=== PATIENT | female | born 1995 | race Caucasian/White ===

== ENCOUNTER 2017-10-15 09:17 | Emergency (ER) | payer OTHER ==
[2017-10-15] MEDS: ONDANSETRON 4 MG ORAL DISINTEGRATING TAB (S0181) PO ×2 (09:40)
== END 2017-10-15 10:32 | disposition home or self-care (01) ==
LOC: M ED 09:17
DX: F07.81 Postconcussional syndrome (principal); V49.49XA Driver injured in collision with other motor vehicles in traffic accident, initial encounter; Y92.410 Unspecified street and highway as the place of occurrence of the external cause; Y93.89 Activity, other specified; Y99.8 Other external cause status; F17.210 Nicotine dependence, cigarettes, uncomplicated; Z91.018 Allergy to other foods
CPT/HCPCS: 70450

== ENCOUNTER 2017-10-15 21:21 | Emergency (ER) | payer OTHER ==
[2017-10-15] MEDS: NORCO, ANEXSIA 5/325MG TABLET (HYDROcodone/ACETAMINOPHEN) PO ×3 (21:56)
== END 2017-10-15 23:29 | disposition home or self-care (01) ==
LOC: M ED 21:21
DX: G44.309 Post-traumatic headache, unspecified, not intractable (principal); Z91.018 Allergy to other foods
CPT/HCPCS: 70450

== ENCOUNTER → 2017-12-07 | Outpatient (REF) | payer OTHER | LOC: M SFHCLERA 17:18 | DX: J02.9 Acute pharyngitis, unspecified (principal) ==

== ENCOUNTER → 2018-05-23 | Outpatient (CLI) | payer OTHER | LOC: M RAD 14:44 | DX: Z32.01 Encounter for pregnancy test, result positive (principal); Z3A.01 Less than 8 weeks gestation of pregnancy | CPT/HCPCS: 76801 ==

== ENCOUNTER 2018-07-26 10:06 | Emergency (ER) | payer OTHER ==
[2018-07-26 10:30] LABS: CONTROL LINE UCG INT CTR LINE PRESENT; URINE PREG TEST NEGATIVE (NEGATIVE)
[2018-07-26 10:41] LABS: KETONE, URINE AUTO RFX NEGATIVE (NEGATIVE); MUCUS, URINE RFX SMALL (NEGATIVE); RBC, URINE AUTO RFX 0 /HPF (0-3); SPECIFIC GRAVITY UR AUTO RFX 1.016 (1.002-1.035); SQUAM EPITHELIAL CELL UR AURFX 3 /HPF (0-6)
[2018-07-26 10:43] LABS: LEUKOCYTE ESTERASE UR AUTO RFX 3+ (NEGATIVE); NITRITE, URINE AUTO RFX POSITIVE (NEGATIVE); WBC, URINE AUTO RFX TNTC /HPF (0-3)
[2018-07-26] MEDS: PHENAZOPYRIDINE 100 MG TAB PO (10:53)
== END 2018-07-26 11:14 | disposition home or self-care (01) ==
LOC: M ED 10:06
DX: N39.0 Urinary tract infection, site not specified (principal); Z97.5 Presence of (intrauterine) contraceptive device; Z91.018 Allergy to other foods
CPT/HCPCS: 74018

== ENCOUNTER 2019-07-27 20:21 | Emergency (ER) | payer OTHER ==
[~2019-07-27] VITALS: Ht 165.1 cm; Wt 72.7 kg
[~2019-07-27 20:21] MED LIST: MACR100C43 PO; PYRI1TAB5 PO
--- NOTE | 2019-07-27 20:48 | REPVR ---
PROCEDURE INFORMATION: Exam: CT Head Without Contrast Exam date and time: 07/27/2019 8:39 PM Clinical history: 24 years old, female; Injury or trauma; Fall; Initial encounter; Blunt trauma (contusions or hematomas); Consciousness not specified; Additional info: Fell down stairs, headache and dizziness TECHNIQUE: Imaging protocol: Computed tomography of the head without contrast. Radiation optimization: All CT scans at this facility use at least one of these dose optimization techniques: automated exposure control; mA and/or kV adjustment per patient size (includes targeted exams where dose is matched to clinical indication); or iterative reconstruction. COMPARISON: CT Head without contrast 10/15/2017 9:58 PM FINDINGS: Brain: Normal. No hemorrhage. Unremarkable white matter. No mass effect. Ventricles: Normal. No ventriculomegaly. Bones/joints: Unremarkable. No acute fracture. Sinuses: Visualized sinuses are unremarkable. No fluid levels. Mastoid air cells: Visualized mastoid air cells are well aerated. Soft tissues: Unremarkable. IMPRESSION: No acute intracranial abnormality. Electronically signed by: Nick Baca On 07/27/2019 20:47:52 PM
[2019-07-27] MEDS ORDERED: METOCLOPRAMIDE 10 MG TAB PO ONE (21:45)
[2019-07-27] MEDS ORDERED: KETOROLAC 60 MG/2 ML VIAL (J1885) IM ONE (21:45)
[2019-07-27] MEDS ORDERED: diphenhydrAMINE 50 MG CAP PO ONE (21:45)
[2019-07-27 22:34] VITALS: BP 123/78
[2019-07-27] MEDS ORDERED: REGL10TA6 PO (22:53)
== END 2019-07-27 23:06 | disposition home or self-care (01) ==
LOC: M ED 20:21
DX: S06.0X0A Concussion without loss of consciousness, initial encounter (principal); W01.0XXA Fall on same level from slipping, tripping and stumbling without subsequent striking against object, initial encounter; Y92.018 Other place in single-family (private) house as the place of occurrence of the external cause; F17.210 Nicotine dependence, cigarettes, uncomplicated
CPT/HCPCS: 70450; 96372; 99283; J1885